=== PATIENT | male | born 1990 | race Caucasian/White ===

== ENCOUNTER → 2018-03-08 | Emergency (ER) | payer BC ==
[~2018-03-08] VITALS: Ht 180.3 cm; Wt 68.0 kg
[~2018-03-08] MED LIST: ALPRAZOLAM0.25 MG PO; AZITHROMYCIN500 MG PO; BENADRYL25 MG; DOXYCYCLINE HY100 MG PO; ERY-TAB250 MG PO; NAPROSYN500 MG PO; PROPRANOLOL HCL10 MG PO; SORBUTUSS LIQU474 ML PO; ZANTAC150 MG PO
== END ==
LOC: ED 19:07
DX: Z53.21 Procedure and treatment not carried out due to patient leaving prior to being seen by health care provider (principal)

== ENCOUNTER 2018-11-17 14:53 | Emergency (ER) | payer BC ==
[~2018-11-17] VITALS: Ht 180.3 cm; Wt 65.8 kg
--- OUTSIDE RECORDS SUMMARY | 2018-11-17 14:56 | XMS ---
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 Details: LWBS CRITERIA MET - Group Notification CARE PROVIDERS There are no care providers on record at this time. Nel has no Care Guidelines for this patient. EMelania VISIT COUNT (12 MO.) 2 [facility] TOTAL 2 NOTE: Visits indicate total known visits. ED/UCC VISIT TRACKING (12 MO.) 11/17/2018 14:53 [facility] [place] TYPE: Emergency COMPLAINT: - SWOLLEN LIP 03/08/2018 19:08 [facility] [place] TYPE: Emergency COMPLAINT: - FEVER, MASS ON R CHEEK DIAGNOSES: - Procedure and treatment not carried out due to patient leaving prior to being seen by health care provider - Localized swelling, mass and lump, head - Fever, unspecified INPATIENT VISIT TRACKING (12 MO.) No inpatient visits to display in this time frame [email or web address]
[2018-11-17] MEDS ORDERED: BUPRENORPHIN-N1 EACH SL (15:03)
[2018-11-17] MEDS ORDERED: LAMOTRIGINE200 MG PO (15:04)
[2018-11-17] MEDS ORDERED: DOXYCYCLINE HY100 MG PO (15:23)
== END 2018-11-17 15:30 | disposition home or self-care (01) ==
LOC: ED 14:53
DX: K13.0 Diseases of lips (principal); F43.10 Post-traumatic stress disorder, unspecified; F31.9 Bipolar disorder, unspecified; F17.200 Nicotine dependence, unspecified, uncomplicated; Z88.0 Allergy status to penicillin; Z79.899 Other long term (current) drug therapy
CPT/HCPCS: 99283

== ENCOUNTER 2018-12-28 12:35 | Emergency (ER) | payer BC ==
[~2018-12-28] VITALS: Ht 180.3 cm; Wt 65.8 kg
[~2018-12-28 12:35] MED LIST changes: +BUPRENORPHIN-N1 EACH SL; +LAMOTRIGINE200 MG PO
--- OUTSIDE RECORDS SUMMARY | 2018-12-28 12:38 | XMS ---
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 Details: PAULINO CRITERIA MET - Group Notification CARE PROVIDERS MARCUS ROB[facility] Medicine: Sports Medicine 11/18/2018-Current PHONE: Unknown Nel has no Care Guidelines for this patient. Daniel VISIT COUNT (12 MO.) 3 [facility]. TOTAL 3 NOTE: Visits indicate total known visits. ED/UCC VISIT TRACKING (12 MO.) 12/28/2018 12:35 [facility] [place] TYPE: Emergency COMPLAINT: - R THUMB LACERATION 11/17/2018 14:53 [facility] [place] TYPE: Emergency COMPLAINT: - SWOLLEN LIP,NON INJURY DIAGNOSES: - Diseases of lips - Nicotine dependence, unspecified, uncomplicated - Bipolar disorder, unspecified - Post-traumatic stress disorder, unspecified - Other custodial (current) drug therapy - Allergy status to penicillin 03/08/2018 19:08 [facility] [place] TYPE: Emergency COMPLAINT: - FEVER, MASS ON R CHEEK DIAGNOSES: - Procedure and treatment not carried out due to patient leaving prior to being seen by health care provider - Localized swelling, mass and lump, head - Fever, unspecified INPATIENT VISIT TRACKING (12 MO.) No inpatient visits to display in this time frame [email or web address]
== END 2018-12-28 13:11 | disposition home or self-care (01) ==
LOC: ED 12:35
PROC: 0XQLXZZ Repair Right Thumb, External Approach (ICD-10-PCS; principal; 2018-12-28)
DX: S61.011A Laceration without foreign body of right thumb without damage to nail, initial encounter (principal); F41.0 Panic disorder [episodic paroxysmal anxiety]; F43.10 Post-traumatic stress disorder, unspecified; F31.9 Bipolar disorder, unspecified; F17.200 Nicotine dependence, unspecified, uncomplicated; Z88.0 Allergy status to penicillin; Z79.899 Other long term (current) drug therapy; W25.XXXA Contact with sharp glass, initial encounter
CPT/HCPCS: 12001; 99282-25